=== PATIENT | male | born 1995 | race Caucasian/White ===

== ENCOUNTER 2018-11-02 13:20 | Day surgery (SDC) | payer OTHER ==
[~2018-11-02 13:20] MED LIST: CEFAZOLIN 2 GM/50 ML (PMX) 50 ML IVPB; SOD CHLORIDE 0.9% 1,000 ML IV
[2018-11-02] MEDS ORDERED: ONDANSETRON 4 MG INJ IV (16:00)
[2018-11-02] MEDS ORDERED: OXYCODONE/ACETAMINOPHEN (5/325) TAB PO ×2 (16:00)
[2018-11-02] MEDS ORDERED: MEPERIDINE 25 MG INJ IV (16:00)
[2018-11-02] MEDS ORDERED: DIPHENHYDRAMINE 50 MG INJ IV (16:00)
[2018-11-02] MEDS ORDERED: HYDROmorphONE 1 MG/5 ML IV SYRINGE IV ×3 (16:00)
[2018-11-02] MEDS ORDERED: MIDAZOLAM 1 MG/ML 2 ML INJ (16:41)
[2018-11-02] MEDS ORDERED: CEFAZOLIN 1 GM INJ (16:41)
[2018-11-02] MEDS ORDERED: FENTAnyl 50 MCG/ML VIAL (16:41)
[2018-11-02] MEDS ORDERED: PROPOFOL 20 ML (16:41)
[2018-11-02] MEDS: LIDOCAINE 1% (MPF) 30 ML INJ (16:58)
[2018-11-02] MEDS: BUPIVACAINE 0.5%/EPI (SDV) 30 ML INJ (16:58)
[2018-11-02] MEDS ORDERED: KETOROLAC 30 MG INJ (17:09)
== END 2018-11-02 18:39 | disposition home or self-care (01) ==
LOC: SDS 13:20
DX: L90.5 Scar conditions and fibrosis of skin (principal)
CPT/HCPCS: 11406; 88305